=== PATIENT | male | born 1975 | race Hispanic/Latino ===

== ENCOUNTER 2023-11-14 15:33 | Emergency (ER) | payer SELFPAY ==
[2023-11-14] MEDS ORDERED: Ondansetron ODT 4 MG TAB ONE (16:12)
[2023-11-14] MEDS ORDERED: Ketorolac Tromethamine 30 MG (1 mL) VIAL ONE (17:06)
== END 2023-11-14 18:44 | disposition home or self-care (01) ==
LOC: CSHERS 15:33
DX: K08.89 Other specified disorders of teeth and supporting structures (principal); F17.210 Nicotine dependence, cigarettes, uncomplicated
CPT/HCPCS: 96372; 99283; J1885; Q0162